=== PATIENT | female | born 2000 | race Caucasian/White ===

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

== ENCOUNTER 2018-08-25 19:53 | Emergency (ER) | payer MEDICAID, OTHER | END 2018-08-25 21:16 | disposition home or self-care (01) | LOC: EDH 19:53 | DX: N93.9 Abnormal uterine and vaginal bleeding, unspecified (principal); Z79.899 Other long term (current) drug therapy; Z98.890 Other specified postprocedural states; Z90.49 Acquired absence of other specified parts of digestive tract | CPT/HCPCS: 81025 ==

== ENCOUNTER 2019-06-17 21:00 | Emergency (ER) | payer BC, OTHER | END 2019-06-17 22:03 | disposition home or self-care (01) | LOC: EDH 21:00 | DX: N91.2 Amenorrhea, unspecified (principal) | CPT/HCPCS: 99281 ==